=== PATIENT | female | born 1970 | race Caucasian/White ===

== ENCOUNTER 2018-05-05 18:04 | Emergency (ER) | payer OTHER ==
[~2018-05-05] VITALS: Ht 162.6 cm; Wt 58.5 kg
[2018-05-05 18:20] VITALS: BP 103/55
[2018-05-05 19:40] VITALS: BP 103/55
== END 2018-05-05 19:40 | disposition home or self-care (01) ==
LOC: MED 18:04
DX: B02.9 Zoster without complications (principal)
CPT/HCPCS: 99283

== ENCOUNTER 2021-12-13 18:13 | Emergency (ER) | payer OTHER ==
[~2021-12-13] VITALS: Ht 165.1 cm; Wt 70.3 kg
[2021-12-13 19:00] VITALS: BP 115/71
[2021-12-13 19:40] VITALS: BP 115/71
[2021-12-13] MEDS ORDERED: KETOROLAC 30 MG/ML VIAL IM ONE (20:25)
[2021-12-13] MEDS ORDERED: methylPREDNISolone SS 40 MG in WATER STERILE 1 ML IM ONE (20:25)
[2021-12-13] MEDS ORDERED: DICL100G5 TP (20:31)
[2021-12-13] MEDS ORDERED: IBUP-1842 PO (20:31)
[2021-12-13] MEDS ORDERED: CYCL-654 PO (20:31)
== END 2021-12-13 21:13 | disposition home or self-care (01) ==
LOC: MED 18:13
DX: M54.32 Sciatica, left side (principal); Z20.822 Contact with and (suspected) exposure to COVID-19; Z79.899 Other long term (current) drug therapy
CPT/HCPCS: 72110; 87426; 96372; 99284; Q0092; J1885; J2920